=== PATIENT | female | born 1955 | race Asian ===

== ENCOUNTER 2017-08-06 16:00 | Emergency (ER) | payer MEDICAID ==
[~2017-08-06] VITALS: Ht 152.4 cm; Wt 63.5 kg
[~2017-08-06 16:00] MED LIST: BENADRYL ALLERG25 M1 PO; CAR1 PO; CLOTRIMAZOLE1% TOP; KEN5C TOP; MOTRIN800 MG PO; PRI20 PO; PRILOSEC20 MG PO; PROPRANOLOL HCL10 MG PO
[2017-08-06 16:07] VITALS: Ht 152.4 cm; Wt 63.5 kg
[2017-08-06 17:29] VITALS: BP 99/56
== END 2017-08-06 17:41 | disposition home or self-care (01) ==
LOC: ED 16:00
DX: S00.83XA Contusion of other part of head, initial encounter (principal); S09.90XA Unspecified injury of head, initial encounter; I10 Essential (primary) hypertension; K74.60 Unspecified cirrhosis of liver; K21.9 Gastro-esophageal reflux disease without esophagitis; W22.8XXA Striking against or struck by other objects, initial encounter; Y93.89 Activity, other specified; Y92.89 Other specified places as the place of occurrence of the external cause; Y99.8 Other external cause status
CPT/HCPCS: J1885